=== PATIENT | female | born 1990 | race African-American/Black ===

== ENCOUNTER 2016-04-02 15:21 | Emergency (ER) | payer MEDICAID ==
[2016-04-02 15:43] VITALS: BP 126/84; PULSE 77; TEMP 98.7; BMI 43.2
[2016-04-02 16:14] LABS: LEUKOCYTES/URINE TRACE (NEGATIVE); NITRITE/URINE NEG (NEGATIVE); URINE OCCULT BLOOD NEG (NEG/TRACE)
[2016-04-02 17:00] LABS: AUTOMATED BASOPHIL 0.6 % (0-2); AUTOMATED EOSINOPHIL 2.7 % (0-5); AUTOMATED LYMPH 35.3 % (17-44); AUTOMATED MONOCYTE 7.4 % (3-10); MPV 8.3 fL (7.4-10.4)
[2016-04-02 17:12] LABS: BLOOD UREA NITROGEN 11 MG/DL (7-17); CALCIUM 9.1 MG/DL (8.4-10.2); CALCULATED OSMOLALITY 260 MOs/Kg (270-290); CHLORIDE 103 mEq/L (98-107); GLUCOSE 89 MG/DL (70-99); SODIUM LEVEL 136 mEq/L (137-146); TOTAL PROTEIN 8.2 G/DL (6.3-8.2)
--- NOTE | 2016-04-02 18:42 | EDPRACDOC ---
- General Information Chief Complaint: Abdominal Pain Stated Complaint: LOWER ABD PAIN ? APPROX 5 WKS PREG Time Seen by Provider: 04/02/16 18:10 Information Source: Patient Mode Of Arrival: Car Home Medications: Home Medications Vits W-Ca,Fe,FA(<1Mg) [] 1 tab PO DAILY 04/02/16 Allergies/Adverse Reactions: Allergies Allergy/AdvReac Type Severity Reaction Status Date / Time No Known Allergies Allergy Verified 11/25/15 22:09 - History of Present Illness Onset: 3 days HPI: PT C/O LOWER ABD PAIN FOR 3 DAYS STATES SHE IS APPROX 5 WEEKS . DENIES VAGINAL BLEEDING/DISCHARGE AT THIS TIME. PT STATES THE PAIN IS ACHY AND SHOOTS THROUGH TO HER VAGINA. PT ALSO STATES SHE WAS DIAGNOSED WITH BACTERIAL VAGINOSIS COUPLE MONTHS AGO BUT ONLY TOOK 3 DAYS OF MEDS DUE TO NOT BEING ABLE TO SWALLOW PILLS. Pain Location: Reports: Suprapubic Pain Context: Reports: Spontaneous Pain Severity: Mild Pain Radiation: Reports: No Radiation Last Menstrual Period: 5 weeks [employer] : Yes (5WKS) Control Method: Reports: None Blood Type: Unknown Adult Abdominal History: Denies: Urolithiasis, Bowel Obstruction Female Abdominal History: Denies: UTI, Ectopic, PID, Urolithiasis Modifying Factors: improves with: Nothing Oral Intake: Normal Urinary Output: Normal ED Past Medical History - History Reviewed Yes Nurses notes reviewed and agree except as marked Travel Outside of [place] in the Last 3 Months?: No - Patient Medical History GI/ History: Denies: Urinary Tract Infection Psychological History: Denies: Depression Systemic History: Denies: Cancer Surgical History: Denies: Hysterectomy - Social Medical History Smoking Status: Heavy tobacco smoker (5 or more cigarettes/day or daily pipe/ cigar) ETOH: None Substance Abuse: None Lives With: Other Lives In: Home EDM Review of Systems - Review of Systems ROS Negative Except as Marked: Yes All systems reviewed and were negative except as marked Constitutional: No Symptoms Reported. negative: Fever, Chills, Weakness, Fatigue, Loss of Appetite Eyes: No Symptoms Reported. negative: Redness, Blurred Vision, Double Vision, Discharge, Pain, Light Sensitive, Photophobia Ears: No Symptoms Reported. negative: Pain, Hearing Loss, Drainage, Ear Pulling Throat: No Symptoms Reported. negative: Pain, Swelling Nose: No Symptoms Reported. negative: Congestion, Bleeding, Discharge, Injection, Swelling, Deformity, Ecchymosis, Tender, Abrasion, Laceration Mouth: No Symptoms Reported. negative: Pain, Drooling Respiratory: No Symptoms Reported. negative: Cough, Brassy Cough, Barky Cough, Shortness of Breath, Wheezing, Hemoptysis Cardiovascular: No Symptoms Reported. negative: Chest Pain, Palpitations, Syncope, Edema, Orthopnea, PND, Skin Mottling, Cyanosis Gastrointestinal: Pain. negative: Constipation, Diarrhea, Formula Intolerance, Melena, Nausea, Vomiting Genitourinary: No Symptoms Reported. negative: Dysuria, Hematuria, Frequency, Discharge, Bleeding, Testicular Pain, Neurological: No Symptoms Reported. negative: Headache, Dizziness, Seizure, Numbness, Weakness, Speech Difficulty, Gait Difficulty Musculoskeletal: No Symptoms Reported. negative: Neck, Chestwall, Ribs, Back, Shoulder, Arm, Elbow, Forearm, Wrist, Hand, Pelvis, Hip, Femur, Knee, Leg, Ankle , Foot Integumentary: No Symptoms Reported. negative: Itching, Rash, Bruising, Wound Allergic/Immunologic: No Symptoms Reported. negative: Hives, Itching Hematologic: No Symptoms Reported. negative: Lymphadenopathy, Easy Bruising, Easy Bleeding Endocrine: No Symptoms Reported. negative: Weight Gain, Weight Loss Psychiatric: No Symptoms Reported. negative: Anxiety, Depression, Hallucinations, Insomnia, Suicidal - Physical Exam Constitutional: Alert (Awake), No apparent distress Oriented to: Time, Person, Place Last recorded Vital Signs: Last Vital Signs Temp 98.7 F 04/02/16 15:41 Pulse 77 04/02/16 15:41 Resp 20 04/02/16 15:41 BP 126/84 04/02/16 15:41 Pulse Ox 98 04/02/16 15:41 Oxygen Pulse Oxygen Saturation 98 O2 Device Room Air Oxygen Flow Rate Fraction of Inspired Oxygen ( FIO2) - HEENT Head: Normal ( normocephalic) Eye Exam: Normal (PERRL, EOMI, Sclera white) Oropharynx: Normal (Pharynx:Moist without exudate,Gums-no swelling) Tympanic Membrane: Normal ENT EAC: Normal TMJ: Normal Nose: No Symptoms Reported (septum midline) Neck: Normal (FROM, trachea at midline) - Respiratory/Cardiovascular Respiratory: Normal - CTA (BBS clear to auscultation without adventitious sounds ) Cardiovascular: Normal (RRR without murmur, gallop or rub) - GI Auscultation: Normal (NABS) Palpation: Normal (Soft,No rebound or guarding, non distended) Tenderness: Suprapubic Jerez's Sign: Negative - Bladder: Normal External: Normal Vagina: Discharge Cervix: Discharge, Tenderness (MILD) Uterus: Enlarged Adnexa: Bilateral: Normal - Musculoskeletal Back: Normal (Non-Tender) Extremities: Normal (Normal tone, Pulses 2+ No cyanosis or edema, FROM) - Integumentary Skin: Normal, Warm, Dry Lymphatics: Normal (no adenopathy) - Neurologic Memory Impaired: Normal Motor Function: Normal (Normal tone, Pulses 2+ No cyanosis or edema, FROM) Cranial Nerve: Normal (CN II-X11 intact sensation, strength 5/5) Cerebellar: Normal Mood Description: Normal Perception: Normal - Differential Diagnosis UTI, Other (BV, CERVICITIS, CANDIDIASIS) - Results 04/02/16 16:50 04/02/16 16:50 WBC 5.6 xk/uL (3.8-10.8) 04/02/16 16:50 RBC 4.26 xM/uL (4.20-5.40) 04/02/16 16:50 Hgb 12.4 g/dL (12.0-16.0) 04/02/16 16:50 Hct 37.6 % (36-47) 04/02/16 16:50 MCV 88 fL (81-99) 04/02/16 16:50 MCH 29.2 pg (27-32) 04/02/16 16:50 MCHC 33.1 g/dl (33-36) 04/02/16 16:50 RDW 14.4 % (11.5-14.5) 04/02/16 16:50 Plt Count 197 xk/uL (130-400) 04/02/16 16:50 MPV 8.3 fL (7.4-10.4) 04/02/16 16:50 Neut % (Auto) 54.0 % (45-76) 04/02/16 16:50 Lymph % (Auto) 35.3 % (17-44) 04/02/16 16:50 [place] % (Auto) 7.4 % (3-10) 04/02/16 16:50 Eos % (Auto) 2.7 % (0-5) 04/02/16 16:50 Baso % (Auto) 0.6 % (0-2) 04/02/16 16:50 Absolute Neuts (auto) 3.02 xk/uL (1.7-8.2) 04/02/16 16:50 Absolute Lymphs (auto) 1.96 xk/uL (0.65-4.75) 04/02/16 16:50 Sodium 136 mEq/L (137-146) L 04/02/16 16:50 Potassium 4.2 mEq/L (3.5-5.1) 04/02/16 16:50 Chloride 103 mEq/L (98-107) 04/02/16 16:50 Carbon Dioxide 23 mMOL/L (22-33) 04/02/16 16:50 Anion Gap 14 mEq/L (8-16) 04/02/16 16:50 BUN 11 MG/DL (7-17) 04/02/16 16:50 Creatinine 0.90 MG/DL (0.52-1.04) 04/02/16 16:50 Estimated GFR (MDRD) > 60 mL/min (>=60) 04/02/16 16:50 Glucose 89 MG/DL (70-99) 04/02/16 16:50 Calculated Osmolality 260 MOs/Kg (270-290) L 04/02/16 16:50 Calcium 9.1 MG/DL (8.4-10.2) 04/02/16 16:50 Total Bilirubin 0.5 MG/DL (0.2-1.3) 04/02/16 16:50 AST 27 IU/L (14-36) 04/02/16 16:50 ALT 23 IU/L (9-52) 04/02/16 16:50 Alkaline Phosphatase 87 IU/L (38-126) 04/02/16 16:50 Total Protein 8.2 G/DL (6.3-8.2) 04/02/16 16:50 Albumin 4.0 G/DL (3.5-5.0) 04/02/16 16:50 Lipase 102 U/L (23-300) 04/02/16 16:50 Beta HCG, Quant 9261.0 mIU/mL (<5) 04/02/16 16:50 Urine Color Yellow 04/02/16 15:45 Urine Clarity Sl cldy 04/02/16 15:45 Urine pH 5.0 (5.0-8.0) 04/02/16 15:45 Ur Specific [place] 1.025 (1.003-1.035) 04/02/16 15:45 Urine Protein Neg (NEG/TRACE) 04/02/16 15:45 Urine Glucose (UA) Neg (NEGATIVE) 04/02/16 15:45 Urine Ketones Neg (NEGATIVE) 04/02/16 15:45 Urine Occult Blood Neg (NEG/TRACE) 04/02/16 15:45 Urine Nitrite Neg (NEGATIVE) 04/02/16 15:45 Urine Bilirubin Neg (NEGATIVE) 04/02/16 15:45 Urine Urobilinogen <2.0 MG/DL (0-1) 04/02/16 15:45 Ur Leukocyte Esterase Trace (NEGATIVE) H 04/02/16 15:45 Urine RBC 2-5 (0-5) 04/02/16 15:45 Urine WBC 2-5 (0-5) 04/02/16 15:45 Ur Epithelial Cells 4+ 04/02/16 15:45 Urine Bacteria 1+ (NEG/FEW) H 04/02/16 15:45 Urine Mucus Occ (NEG/OCC) 04/02/16 15:45 Urine Test Pos (NEGATIVE) H 04/02/16 15:45 Microbiology 04/02/16 19:25 AG Preparation - Final Vaginal 04/02/16 19:25 Trichomonas Wet [place] - Final Vaginal Lab Results 04/02/16 04/02/16 04/02/16 16:50 16:50 16:50 WBC 5.6 RBC 4.26 Hgb 12.4 Hct 37.6 MCV 88 MCH 29.2 MCHC 33.1 RDW 14.4 Plt Count 197 MPV 8.3 Neut % (Auto) 54.0 Lymph % (Auto) 35.3 [place] % (Auto) 7.4 Eos % (Auto) 2.7 Baso % (Auto) 0.6 Absolute Neuts (auto) 3.02 Absolute Lymphs (auto) 1.96 Sodium 136 L Potassium 4.2 Chloride 103 Carbon Dioxide 23 Anion Gap 14 BUN 11 Creatinine 0.90 Estimated GFR (MDRD) > 60 Glucose 89 Calculated Osmolality 260 L Calcium 9.1 Total Bilirubin 0.5 AST 27 ALT 23 Alkaline Phosphatase 87 Total Protein 8.2 Albumin 4.0 Lipase 102 Beta HCG, Quant 9261.0 Urine Color Urine Clarity Urine pH Ur Specific [place] Urine Protein Urine Glucose (UA) Urine Ketones Urine Occult Blood Urine Nitrite Urine Bilirubin Urine Urobilinogen Ur Leukocyte Esterase Urine RBC Urine WBC Ur Epithelial Cells Urine Bacteria Urine Mucus Urine Test 04/02/16 04/02/16 15:45 15:45 WBC RBC Hgb Hct MCV MCH MCHC RDW Plt Count MPV Neut % (Auto) Lymph % (Auto) [place] % (Auto) Eos % (Auto) Baso % (Auto) Absolute Neuts (auto) Absolute Lymphs (auto) Sodium Potassium Chloride Carbon Dioxide Anion Gap BUN Creatinine Estimated GFR (MDRD) Glucose Calculated Osmolality Calcium Total Bilirubin AST ALT Alkaline Phosphatase Total Protein Albumin Lipase Beta HCG, Quant Urine Color Yellow Urine Clarity Sl cldy Urine pH 5.0 Ur Specific [place] 1.025 Urine Protein Neg Urine Glucose (UA) Neg Urine Ketones Neg Urine Occult Blood Neg Urine Nitrite Neg Urine Bilirubin Neg Urine Urobilinogen <2.0 Ur Leukocyte Esterase Trace H Urine RBC 2-5 Urine WBC 2-5 Ur Epithelial Cells 4+ Urine Bacteria 1+ H Urine Mucus Occ Urine Test Pos H - Diagnostic Imaging OB US Image interpreted by: Radiologist 04/02/16 19:29 TECHNIQUE: Both transabdominal and transvaginal ultrasound examinations were performed for complete evaluation of the gestation as well as the maternal uterus, adnexal regions, and pelvic cul-de-sac. Transvaginal technique was performed to assess early . COMPARISON: None. FINDINGS: Intrauterine gestational sac: Visualized/normal in shape. Yolk sac: None visualized Embryo: None visualized MSD: 10 mm 5 w 5 d Subchorionic hemorrhage: None visualized. Maternal uterus/adnexae: Small fibroid seen in the right lateral uterine wall measuring 1.3 cm. Small left ovarian corpus luteum noted. Right ovary is normal in appearance. IMPRESSION: Single intrauterine gestational sac measuring 5 weeks 5 days by mean sac diameter. This is concordant with LMP. Recommend followup of quantitative beta HCG levels, and consider followup ultrasound to assess viability in 14 days. Small uterine fibroid measuring 1.3 cm. No adnexal mass or free fluid identified. Decision Time to Discharge: 20:21 - Departure Disposition: Home Condition: Stable Final Diagnosis: Abdominal pain during in first trimester Instructions: Acute Abdominal Pain (ED), Non-pharmacological Pain Management Therapies for Adults (GEN), Abdominal Pain (ED), (ED) Education/Counseling Given To: Patient Education/Counseling Given Regarding: Diagnosis, Treatment, Prognosis, Follow Up Referrals: None,No Provider [Primary Care Provider] - One Week Additional Instructions: TYLENOL FOR PAIN, RETURN TO ED OR FOLLOW UP WITH STRIKE PLATE ATTACHER IN 14 DAYS FOR REPEAT ULTRASOUND.
--- NOTE | 2016-04-02 19:20 | DIRPT ---
CLINICAL DATA: Abdominal and pelvic pain for 2 days in first trimester . Gestational age by LMP of 5 weeks 5 days. EXAM: OBSTETRIC <14 WK US AND TRANSVAGINAL OB US TECHNIQUE: Both transabdominal and transvaginal ultrasound examinations were performed for complete evaluation of the gestation as well as the maternal uterus, adnexal regions, and pelvic cul-de-sac. Transvaginal technique was performed to assess early . COMPARISON: None. FINDINGS: Intrauterine gestational sac: Visualized/normal in shape. Yolk sac: None visualized Embryo: None visualized MSD: 10 mm 5 w 5 d Subchorionic hemorrhage: None visualized. Maternal uterus/adnexae: Small fibroid seen in the right lateral uterine wall measuring 1.3 cm. Small left ovarian corpus luteum noted. Right ovary is normal in appearance. IMPRESSION: Single intrauterine gestational sac measuring 5 weeks 5 days by mean sac diameter. This is concordant with LMP. Recommend followup of quantitative beta HCG levels, and consider followup ultrasound to assess viability in 14 days. Small uterine fibroid measuring 1.3 cm. No adnexal mass or free fluid identified. Electronically Signed By: Nj Guevara M.D. On: 04/02/2016 19:18
[2016-04-02] MEDS ORDERED: AZITHROMYCIN 1 GM ORAL POWDER PACKET PO ONE (19:24)
[2016-04-02] MEDS ORDERED: CEFTRIAXONE 250 MG in D5W 100 ML IV ONE (19:24)
[2016-04-02] MEDS ORDERED: AZITHROMYCIN 250 MG TAB ONE (19:50)
[2016-04-02] MEDS ORDERED: CEFTRIAXONE 250 MG VIAL ONE (19:56)
[2016-04-02] MEDS ORDERED: CEFTRIAXONE 250 MG VIAL IM ONE (20:00)
[2016-04-02] MEDS ORDERED: LIDOCAINE 1% 2 ML (METHYLPARABEN FREE) ONE (20:01)
== END 2016-04-02 20:31 | disposition home or self-care (01) ==
LOC: ED 15:21
DX: O26.891 Other specified pregnancy related conditions, first trimester (principal); Z3A.00 Weeks of gestation of pregnancy not specified; R10.9 Unspecified abdominal pain
CPT/HCPCS: 36415; 76801; 76817; 80053; 81001; 81025; 83690; 84702; 85025; 87210; 87220; 96372; 99283; J0696; J2001; J3490; J7060